=== PATIENT | female | born 1975 | race Caucasian/White ===

== ENCOUNTER 2022-05-10 14:27 | Emergency (ER) | payer SELFPAY ==
[2022-05-10 15:13] VITALS: BP 142/88; PULSE 75; RESP 16; TEMP 37.1; O2SAT 98; BMI 26.2
--- NOTE | 2022-05-10 15:32 | W.ED.GENADLT ---
HPI - General Adult General: Chief complaint: General Medical Stated complaint: fever Time Seen by Provider: 05/10/22 15:23 History of Present Illness: Patient is a 47-year-old female comes to the ED with nausea and vomiting. Symptoms first started with right ear pain about 5 to 6 days ago. She developed the other symptoms a couple days later. For the past 4 days patient has had fever, sore throat, headache, body cramps/aches, nausea and vomiting. She is only been able to eat a little bit over the past 4 days because it makes her nausea and vomiting worse. She is able to keep some p.o. fluids down. Patient was seen at urgent care earlier today and diagnosed with otitis media. She was sent home with a prescription for amoxicillin and has had prescription filled but has not taken the medication yet. Associated symptoms: Reports headache(s), nausea and vomiting; Deny chest pain, dyspnea, rash or palpitations Review of Systems Const: Reports: fever(s), body aches and change in appetite (Decreased appetite); Denies: chills or fatigue Eyes: Denies: change in vision or eye discomfort ENMT: Reports: throat pain and ear or mastoid pain (Right ear); Denies: odynophagia, nasal discharge or nasal congestion Card: Denies: chest pain, palpitations, edema, swelling of feet/ankles, dyspnea on exertion or orthopnea Resp: Denies: dyspnea, productive cough or non-productive cough GI: Reports: nausea and vomiting; Denies: abdominal pain, diarrhea, constipation or hematochezia : Denies: flank pain, dysuria or hematuria Musc: Denies: neck pain, back pain or extremity swelling Skin/Breast: Denies: rash or new lesions Neuro: Reports: headache(s); Denies: numbness in extremities or weakness in extremities PFS ED PFSH: Medical History No pertinent family history Surgical History No pertinent past surgical history Physical Exam Const: COMMON NORMALS: no acute distress, patient oriented x3 and alert GENERAL APPEARANCE: cooperative and comfortable HENMT: COMMON NORMALS: normocephalic and EAC's normal HEAD & SCALP: normocephalic EXTERNAL AUDITORY CANAL: EAC's normal TYMPANIC MEMBRANE: TM abnormal TM laterality: right Details: erythematous and fluid behind TM MOUTH: moist mucous membranes abnormal Details: parched THROAT: posterior oropharynx normal and uvula midline Neck/C-Spine: COMMON NORMALS: supple GENERAL: Yes normal visual inspection Resp: COMMON NORMALS: normal respiratory effort, No retractions, No use of accessory muscles and clear to auscultation bilaterally AUSCULTATION: clear to auscultation bilaterally Cardio: COMMON NORMALS: regular rate, regular rhythm, S1 normal heart sound present, S2 normal heart sound present, No gallops present (Cardio), No clicks present (Cardio), No murmurs present (Cardio) and Peripheral pulses 2+ throughout RATE: regular rate RHYTHM: regular rhythm HEART SOUNDS: S1 normal heart sound present and S2 normal heart sound present PERIPHERAL PULSES: Peripheral pulses 2+ throughout GI: COMMON NORMALS: Normal to inspection, nondistended, normoactive bowel sounds present, Soft to palpation, non-tender and no masses PALPATION: Yes Soft to palpation : COMMON NORMALS: Yes no CVA tenderness BLADDER/KIDNEY EXAM: Yes no CVA tenderness Back/Pelvis: COMMON NORMALS: no CVA tenderness Extremity: COMMON NORMALS: normal to inspection Neuro: COMMON NORMALS: patient oriented x3 SENSORIUM/ORIENTATION: Yes alert GAIT: Yes Normal gait present Skin: GENERAL SKIN EXAM: dry skin Course Vital Signs: Vital signs: Vital Signs Temperature 99.1 F 05/10/22 18:01 Pulse Rate 85 05/10/22 18:01 Respiratory Rate 15 05/10/22 18:01 Blood Pressure 130/74 05/10/22 18:01 Pulse Oximetry 97 05/10/22 18:01 Oxygen Delivery Id thod 05/10/22 15:13 [facility] - General Adult Medical Decision Making Patient is a 47-year-old female comes to the ED with nausea and vomiting. Symptoms first started with right ear pain about 5 to 6 days ago. She developed the other symptoms a couple days later. For the past 4 days patient has had fever, sore throat, headache, body cramps/aches, nausea and vomiting. Patient saw urgent care clinic earlier this morning and diagnosed with otitis media and was discharged home with a prescription for amoxicillin. Vitals are stable. Exam shows dry oral mucous membranes and otitis media in right ear. Rest of exam was benign. White blood cell count of 23.2 and the rest of CBC and CMP were unremarkable. Patient's elevated white blood cell count likely due to dehydration and otitis media. She was given a liter of IV fluids and Zofran here in the ED and her symptoms improved and she was able to keep p.o. fluids down. She was also given a dose of IV Rocephin here as well. Patient was stable for discharge home and diagnosed with otitis media, acute upper respiratory infection and dehydration. Told to follow-up with her PCP within the next week for reevaluation. She was discharged home with a prescription for Zofran and told to start taking her previously prescribed amoxicillin. Return to ED precautions given. Patient understood and agreed with plan. Lab Data I reviewed the patient's lab results. : 05/10/22 15:38 05/10/22 15:38 Laboratory Results WBC 23.2 10^3/uL (4.0-10.0) H 05/10/22 15:38 RBC 4.83 10^6/uL (4.1-5.3) 05/10/22 15:38 Hgb 14.7 g/dL (11.5-15.3) 05/10/22 15:38 Hct 43.8 % (37.0-47.0) 05/10/22 15:38 MCV 90.7 fl (81-99) 05/10/22 15:38 MCH 30.4 pg (28.0-34.0) 05/10/22 15:38 MCHC 33.6 g/dL (30.0-36.0) 05/10/22 15:38 RDW 12.6 % (12.1-15.1) 05/10/22 15:38 Plt Count 358 10^3/cmm (130-400) 05/10/22 15:38 MPV 9.5 fL (7.4-10.4) 05/10/22 15:38 Neut % (Auto) 87.3 % 05/10/22 15:38 Lymph % (Auto) 5.4 % 05/10/22 15:38 [place] % (Auto) 6.4 % 05/10/22 15:38 Eos % (Auto) 0.0 % 05/10/22 15:38 Baso % (Auto) 0.3 % 05/10/22 15:38 Neut # (Auto) 20.25 10^3/uL (1.8-7.7) H 05/10/22 15:38 Lymph # (Auto) 1.3 10^3/uL (0.8-4.8) 05/10/22 15:38 [place] # (Auto) 1.5 10^3/uL (0.2-0.9) H 05/10/22 15:38 Eos # (Auto) 0.0 10^3/uL (0.0-0.8) 05/10/22 15:38 Baso # (Auto) 0.1 10^3/uL (0.0-0.1) 05/10/22 15:38 Nucleated RBC % (auto) 0 % 05/10/22 15:38 Nucleated RBCs # 0.0 /100WBC 05/10/22 15:38 Sodium 131 mmol/L (136-145) L 05/10/22 15:38 Potassium 4.3 mmol/L (3.5-5.1) 05/10/22 15:38 Chloride 98 mmol/L (98-107) 05/10/22 15:38 Carbon Dioxide 24 mmol/L (22-29) 05/10/22 15:38 Anion Gap 13.3 (5-19) 05/10/22 15:38 BUN 10 mg/dL (6-20) 05/10/22 15:38 Creatinine 0.7 mg/dL (0.5-0.9) 05/10/22 15:38 GFR Calculation 90.1 mL/min (90-130) 05/10/22 15:38 Glucose 134 mg/dL (65-115) H 05/10/22 15:38 Calculated Osmolality 273 mOsm/kg (285-295) L 05/10/22 15:38 Calcium 9.4 mg/dL (8.5-10.5) 05/10/22 15:38 Total Bilirubin 0.3 mg/dL (0.15-1.2) 05/10/22 15:38 AST 47 U/L (0-32) H 05/10/22 15:38 ALT 46 U/L (0-33) H 05/10/22 15:38 Alkaline Phosphatase 112 U/L (35-105) H 05/10/22 15:38 Total Protein 6.8 g/dL (6.6-8.7) 05/10/22 15:38 Albumin 4.0 g/dL (3.5-5.2) 05/10/22 15:38 Globulin 2.8 g/dL (1.3-4.6) 05/10/22 15:38 Discharge Plan Discharge Patient Disposition: Home Clinical Impression: Acute upper respiratory infection, Dehydration Otitis media Qualifiers: Otitis media type: serous Chronicity: unspecified Laterality: right Qualified Code(s): H65.91 - Unspecified nonsuppurative otitis media, right ear Condition: Stable Prescriptions: New ondansetron 4 mg tablet,disintegrating 4 mg PO Q8H PRN (Reason: nausea and vomiting) Qty: 15 0RF No Action amoxicillin 875 mg tablet 875 mg PO BID 7 Days Qty: 14 0RF Discharge Orders: Discharge ED (Routine); Ordered 05/10/22 Ordered By: Camilo Romo Discharge Diet: Advance as tolerated Discharge Activity: Increase activity as tolerated Patient Instructions: Otitis Media - Adult, Dehydration (ED), Upper Respiratory Infection (DC) Activity Restrictions/Additional Instructions: Follow-up with medical provider as directed in the next 3 to 5 days for reevaluation. Take medications as prescribed. Start taking your previously prescribed amoxicillin tomorrow, since he received IV antibiotic dose here in the ED. Make sure you drink plenty fluids and stay hydrated. Return to the ER or your medical provider if condition worsens. Please read and understand discharge instructions. Thank you for choosing [facility] for your healthcare needs today. Please realize this is an emergency room and that we are providing you with a medical screening exam and this may not be complete and all inclusive of all the testing and or work up that you may need to determine your ailment or severity of your illness. It is very important that you follow up as instructed or that you return to the Emergency Department should you have concerns or if your condition changes or worsens in any way. Coding Level of Care Code ED [employer] for [employer] Exam Comprehensive
[2022-05-10 15:46] LABS: Basophils # 0.1 10^3/uL (0.0-0.1); Basophils % 0.3 %; Hematocrit 43.8 % (37.0-47.0); Hemoglobin 14.7 g/dL (11.5-15.3); Lymphocytes # 1.3 10^3/uL (0.8-4.8); Lymphocytes % 5.4 %; Mean Corpuscular HGB Conc 33.6 g/dL (30.0-36.0); Mean Corpuscular Hemoglobin 30.4 pg (28.0-34.0); Mean Corpuscular Volume 90.7 fl (81-99); Mean Platelet Volume 9.5 fL (7.4-10.4); Monocytes # 1.5 10^3/uL (0.2-0.9); Monocytes % 6.4 %; Neutrophils # 20.25 10^3/uL (1.8-7.7); Neutrophils % 87.3 %; Nucleated Red Blood Cells % 0 %; Platelet Count 358 10^3/cmm (130-400); Red Blood Count 4.83 10^6/uL (4.1-5.3); Red Cell Distribution Width 12.6 % (12.1-15.1); White Blood Count 23.2 10^3/uL (4.0-10.0)
[2022-05-10] MEDS: ondansetron 2 mg/ML SDV 2 mL 4 MG IVP (16:13)
[2022-05-10] MEDS: sodium chloride 0.9% 1,000 ML 999 ML IV (16:13)
[2022-05-10 16:17] LABS: Alanine Aminotransferase 46 U/L (0-33); Alkaline Phosphatase 112 U/L (35-105); Anion Gap 13.3 (5-19); Aspartate Amino Transferase 47 U/L (0-32); Blood Urea Nitrogen 10 mg/dL (6-20); Calcium 9.4 mg/dL (8.5-10.5); Carbon Dioxide 24 mmol/L (22-29); Chloride 98 mmol/L (98-107); Globulin 2.8 g/dL (1.3-4.6); Glomerular Filtration Rate 90.1 mL/min (90-130); Glucose 134 mg/dL (65-115); Osmolality Calculated 273 mOsm/kg (285-295); Potassium 4.3 mmol/L (3.5-5.1); Sodium 131 mmol/L (136-145); Total Bilirubin 0.3 mg/dL (0.15-1.2); Total Protein 6.8 g/dL (6.6-8.7)
[2022-05-10] MEDS: cefTRIAXone 1,000 MG in sodium chloride 0.9% (plus) 50 ML 100 MG IV (16:19)
[2022-05-10 18:01] VITALS: BP 130/74; PULSE 85; RESP 15; TEMP 37.3; O2SAT 97
== END 2022-05-10 18:09 | disposition home or self-care (01) ==
PROVIDERS: Emergency Provider Physician Assistant
DX: J06.9 Acute upper respiratory infection, unspecified (principal); E86.0 Dehydration; H65.91 Unspecified nonsuppurative otitis media, right ear
CPT/HCPCS: 36415; 80053; 85025; 87070; 87071; 87880; 96365; 96375; 99284; J0696; J2405; J7030

== ENCOUNTER 2024-01-21 20:11 | Emergency (ER) | payer SELFPAY ==
[2024-01-21 20:38] VITALS: BP 143/90; PULSE 88; RESP 17; TEMP 36.9; O2SAT 98; BMI 27.4
--- NOTE | 2024-01-21 21:15 | ED_ITS ---
HPI - Skin/Abscess/Foreign Bdy General: Chief complaint: Skin/Abscess/Foreign Body Stated complaint: left side tick bite Time Seen by Provider: 01/21/24 20:37 History of Present Illness: 48-year-old female comes in today with a isabell of redness with a central necrotic lesion. Patient believes that she had picked a tick off the area approximately 2 weeks ago. Patient reports it started getting red about 4 5 days ago and now has significant erythema with tenderness. Patient appears nontoxic. Patient appears no acute distress. Lesion is to the left lower abdomen. Review of Systems General: Reports: 10 or more systems reviewed and unremarkable except in HPI and below Skin/Breast: Reports: non-healing lesions PFS ED PFSH: Medical History No pertinent family history Surgical History No pertinent past surgical history Physical Exam Const: COMMON NORMALS: alert HENMT: COMMON NORMALS: normocephalic HEAD & SCALP: normocephalic Neck/C-Spine: COMMON NORMALS: full ROM Resp: COMMON NORMALS: normal respiratory effort Cardio: COMMON NORMALS: regular rate and regular rhythm RATE: regular rate RHYTHM: regular rhythm GI: COMMON NORMALS: Soft to palpation and non-tender PALPATION: Yes Soft to palpation Extremity: COMMON NORMALS: normal to inspection Neuro: SENSORIUM/ORIENTATION: Yes alert Skin: NARRATIVE SKIN EXAM: Area of redness to the left lower abdomen is approximately 5 cm ovoid with centralized induration. There is also a centralized half a centimeter dry necrotic lesion. Course Vital Signs: Vital signs: Vital Signs Temperature 98.4 F 01/21/24 20:38 Pulse Rate 88 01/21/24 20:38 Respiratory Rate 17 01/21/24 20:38 Blood Pressure 143/90 01/21/24 20:38 Pulse Oximetry 98 01/21/24 20:38 Oxygen Delivery Me thod Room Air 01/21/24 20:38 MDM - Skin/Abscess/Foreign Bdy Medicial Decision Making Patient presents with a lesion to left lower quadrant of abdomen. There is surrounding erythema. Differential diagnosis infected insect bite, abscess, MRSA, cellulitis. No signs of serious illness. Patient was started on doxycycline and mupirocin ointment. Tick panel was sent to lab. Patient will follow-up as needed or return for worsening symptoms. No radiology studies performed this visit Discharge Plan Discharge Patient Disposition: Home Clinical Impression: Infected insect bite of abdomen Qualifiers: Encounter type: initial encounter Qualified Code(s): S30.861A - Insect bite (nonvenomous) of abdominal wall, initial encounter Condition: Stable Prescriptions: New doxycycline hyclate 100 mg capsule 100 mg PO BID 14 Days Qty: 28 0RF mupirocin 2 % ointment 1 applic topical BID Qty: 22 0RF No Action prednisone 20 mg tablet 40 mg PO DAILY 5 Days Qty: 10 0RF Discharge Orders: Discharge ED (Routine); Ordered 01/21/24 Ordered By: Guanaco Collins Discharge Diet: Usual diet Discharge Activity: Increase activity as tolerated Patient Instructions: Insect Bite or Sting (ED) Activity Restrictions/Additional Instructions: Clean wound twice a day with mild soap and water and apply antibiotic ointment. Cover wound with a Band-Aid or dressing or a light gauze for protection. Continue using the ointment and cleaning until wound is healed. Take oral antibiotics as directed. You should start seeing improvement in the wound in 3 days. Return to ER for worsening symptoms such as fever greater than 100.4, increasing swelling and redness, or inability to hold fluids down. Follow-up with primary care in 1 week for recheck. Return to ED as needed. 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
[2024-01-21] MEDS: doxycycline 100 mg Tablet PO (21:21)
[2024-01-21] MEDS: mupirocin oint 22 gm 1 APPLIC TOPICAL (21:22)
--- NOTE | 2024-01-21 21:45 | PC.NURSE ---
this nurse went to lab to collect the corrent tick panel blood tube, large red no gel, this nurse chris blood and label tick panel and took to lab.
[2024-01-23 13:30] LABS: Lyme AB Screen <0.90 index
[2024-01-25 17:30] LABS: E. Chaffeensis AB IGG <1:64; E. Chaffeensis AB IGM <1:20
[2024-01-26 18:51] LABS: RMSF IGG NOT DETECTED; RMSF IGM NOT DETECTED
== END 2024-01-21 21:54 | disposition home or self-care (01) ==
PROVIDERS: Emergency Provider Nurse Practitioner Family
DX: S30.861A Insect bite (nonvenomous) of abdominal wall, initial encounter (principal); W57.XXXA Bitten or stung by nonvenomous insect and other nonvenomous arthropods, initial encounter
CPT/HCPCS: 86618; 86666; 86757; 99283